=== PATIENT | female | born 1935 | race Two or more races ===

== ENCOUNTER 2017-01-21 09:45 | Day surgery (SDC) | payer MEDICARE ==
[2017-01-21] MEDS ORDERED: PROPOFOL 10 MG/ML VIAL IV ONE (14:45)
[2017-01-21] MEDS ORDERED: FENTANYL PF 100MCG/2ML VIAL IV ONE (14:45)
[2017-01-21] MEDS ORDERED: LIDOCAINE 2% MDV (20MG/ML) 20ML VIAL IV ONE (14:45)
[2017-01-21] MEDS ORDERED: ONDANSETRON HCL IV 4 MG/2 ML VIAL IVP ONE (14:45)
--- NOTE | 2017-01-26 12:51 | Operative Note ---
DATE OF SURGERY: 01/21/2017 SURGEON: Rachel Melendez MD OPERATION: ESOPHAGOGASTRODUODENOSCOPY. INDICATIONS: This is an 81-year-old female with a history of gastroesophageal reflux symptoms who presented for esophagogastroduodenoscopy. POSTOPERATIVE DIAGNOSES: 1. Medium-size hiatal hernia with an ulcerated nodule within the hernia sac, status post biopsy. 2. Diffuse multiple ulcerative gastric polyps. 3. Diffuse nodular gastritis. 4. Normal duodenum. ANESTHESIA: Sedation is per Anesthesia. Pulse oximetry was monitored throughout the procedure to maintain O2 saturation of 90% or greater. Supplemental oxygen was administered via nasal cannula. Cardiac and vital signs were monitored throughout the duration of the procedure, and they were stable. The procedure of esophagogastroduodenoscopy and risks and benefits of the procedure, including the risk of bleeding and perforation, among others, were explained to the patient who voiced understanding and desired to have the procedure done. Physical examination was performed, and the patient was found stable for sedation. PROCEDURE: The patient was placed in the left lateral position. Sedation was initiated. A plastic bite block was inserted into the oral cavity. The Olympus [id number] gastroscope was introduced into the oral cavity and advanced to the proximal esophagus without difficulty. The esophageal mucosa was carefully examined upon introduction of the gastroscope. The proximal, mid, and distal esophageal mucosa appeared normal. The gastroscope was then advanced into the stomach, and a medium-size hiatal hernia was noted and within the hernia sac was an ulcerated nodule that was noted. This was subsequently biopsied. Careful examination of the stomach lining showed multiple ulcerative gastric polyps with diffuse gastritis but no ulcerations were noted. The gastroscope was then advanced to the descending duodenum without difficulty. The duodenal bulb and descending duodenum appeared normal. The gastroscope was then withdrawn into the stomach and retroflexion was performed. There were no other lesions noted. The gastroscope was then straightened and withdrawn while carefully examining the gastric and esophageal mucosa. No other lesions noted. Biopsy was obtained from the distal esophageal nodule. The patient tolerated the procedure well without any immediate complications. She remained with stable vital signs and was transferred to the recovery room. RECOMMENDATIONS: We will obtain repeat esophagogastroduodenoscopy with endoscopic ultrasound to evaluate the nodules before polypectomy to adequately assess the risk of significant bleed during the procedure. Further recommendations will be forthcoming with the results of the endoscopy. Thank you for allowing me to participate in the care of your patient. Rcahel Melendez MD CC: Dr. Isela CONNOLLY
== END 2017-01-21 12:34 | disposition home or self-care (01) ==
LOC: HOP 09:45
PROVIDERS: ATTEND Internal Medicine Gastroenterology
DX: K31.7 Polyp of stomach and duodenum (principal); K44.9 Diaphragmatic hernia without obstruction or gangrene; K29.50 Unspecified chronic gastritis without bleeding; I10 Essential (primary) hypertension; E78.00 Pure hypercholesterolemia, unspecified
CPT/HCPCS: J2405